=== PATIENT | male | born 1950 | race Two or more races ===

== ENCOUNTER 2018-03-24 16:09 | Inpatient (IN) | payer SELFPAY ==
[~2018-03-24] VITALS: Ht 165.1 cm; Wt 63.4 kg
[2018-03-24] MEDS ORDERED: AUGMENTIN875 MG PO (20:03)
[2018-03-25 00:30] VITALS: BP 149/80
[2018-03-25 03:37] VITALS: BP 120/59
[2018-03-25 07:38] VITALS: BP 106/58
[2018-03-25 08:10] LABS: APPEARANCE CLEAR ((CLEAR)); BILIRUBIN NEGATIVE; BLOOD SMALL; COLOR YELLOW ((YELLOW)); GLUCOSE (STRIP) NEGATIVE; KETONES NEGATIVE; LEUKOCYTES NEGATIVE; NITRITE NEGATIVE; PROTEIN (STRIP) NEGATIVE; SPECIFIC GRAVITY 1.023 (1.000-1.030); UROBILINOGEN 0.2 MG/DL (0.2-1.0)
[2018-03-25 08:49] LABS: BACTERIA NONE SEEN /HPF; EPITHELIAL CELLS NONE SEEN /HPF; MUCUS TRACE /LPF; RED BLOOD CELLS 0-5 /HPF (0-5); WHITE BLOOD CELLS 0-5 /HPF (0-5)
[2018-03-25 11:34] VITALS: BP 113/71
[2018-03-25 16:31] VITALS: BP 112/61
[2018-03-25 19:51] VITALS: BP 106/69
[2018-03-26] VITALS (7 sets, daily range): BP systolic 98–133; BP diastolic 53–76
[2018-03-26 06:37] LABS: INTER. NORMALIZED RATIO 1.3
[2018-03-26 06:39] LABS: PTT 28.3 SEC (25-37)
[2018-03-27 03:27] VITALS: BP 100/55
[2018-03-27 07:43] VITALS: BP 116/59
[2018-03-27 11:21] VITALS: BP 108/67
[2018-03-27 15:50] VITALS: BP 100/61
[2018-03-27 19:51] VITALS: BP 100/55
[2018-03-27 23:06] VITALS: BP 98/51
[2018-03-28 03:21] VITALS: BP 103/58
[2018-03-28 08:00] VITALS: BP 106/66
[2018-03-28 16:31] VITALS: BP 113/67
[2018-03-28 19:30] VITALS: BP 104/63
[2018-03-28 23:24] VITALS: BP 97/55
[2018-03-29 04:09] VITALS: BP 94/50
[2018-03-29 08:12] VITALS: BP 97/57
[2018-03-29 13:10] VITALS: BP 124/69
[2018-03-29 16:14] VITALS: BP 120/59
[2018-03-29 20:10] VITALS: BP 95/50
[2018-03-30] VITALS (7 sets, daily range): BP systolic 91–105; BP diastolic 50–60
[2018-03-30 06:43] LABS: HEMATOCRIT 36.7 % (38.0-50.0); HEMOGLOBIN 12.2 G/DL (12.5-16.6); MCH 29.3 PG (29.0-34.0); MCHC 33.2 G/DL (30.0-36.0); PLATELET COUNT 231 K/uL (156-360); RBC DIS.WIDTH-CV 11.9 % (11.8-14.6); RBC DIS.WIDTH-SD 38.5 % (39-53); RED BLOOD COUNT 4.17 M/uL (4.00-5.50); WHITE BLOOD COUNT 4.6 K/uL (4.1-10.2)
[2018-03-31 04:47] VITALS: BP 102/52
[2018-03-31 07:39] VITALS: BP 117/60
[2018-03-31 11:17] VITALS: BP 99/55
[2018-03-31 16:02] VITALS: BP 101/58
[2018-03-31 19:10] VITALS: BP 104/59
[2018-03-31 23:26] VITALS: BP 99/57
[2018-04-01 01:42] LABS: QGTB-NIL 0.58 IU/mL (()); QUANTIFERON TB GOLD POSITIVE (Negative); TB AG-NIL 9.43 IU/mL (())
[2018-04-01 04:38] VITALS: BP 89/64
[2018-04-01 04:40] VITALS: BP 152/81
[2018-04-01 07:43] VITALS: BP 102/55
[2018-04-01 11:23] VITALS: BP 108/52
[2018-04-01 15:55] VITALS: BP 97/54
[2018-04-01 23:13] VITALS: BP 98/64
[2018-04-02 08:05] VITALS: BP 98/54
[2018-04-02 12:17] VITALS: BP 109/67
[2018-04-02 16:17] VITALS: BP 102/58
[2018-04-02] MEDS ORDERED: TRAMADOL HCL50 MG PO (19:00)
[2018-04-02] MEDS ORDERED: AUGMENTIN875 MG PO (19:01)
[2018-04-02 19:36] VITALS: BP 120/71
== END 2018-04-02 20:36 | disposition home or self-care (01) | DRG 300 ==
LOC: EME 16:09 → EDOF 22:11 → 3EAST 22:11 → ENRESERV 22:18 → EDOF 03-25 00:18 → 3EAST 03-25 00:29
PROVIDERS: Internal Medicine; Radiology Diagnostic Radiology; Surgery
PROC: 0J943ZX Drainage of Right Neck Subcutaneous Tissue and Fascia, Percutaneous Approach, Diagnostic (ICD-10-PCS; 2018-03-24)
PROC: 0J940ZX Drainage of Right Neck Subcutaneous Tissue and Fascia, Open Approach, Diagnostic (ICD-10-PCS; principal; 2018-03-26)
DX: I96 Gangrene, not elsewhere classified (principal); L02.11 Cutaneous abscess of neck; K80.20 Calculus of gallbladder without cholecystitis without obstruction; I87.1 Compression of vein; E55.9 Vitamin D deficiency, unspecified; W57.XXXA Bitten or stung by nonvenomous insect and other nonvenomous arthropods, initial encounter
CPT/HCPCS: 36415; 70553; 71260; 75989; 76942; 80053; 81003; 82948; 84439; 84443; 85025; 85027; 85610; 85730; 86376; 86480 90; 86611 90; 87040; 87070; 87075; 87102; 87116; 87205; 87206; 88304; 88305; 88312; 93005; 99281; 99284; J0295; J0456; J0690; J1170; J2250; J2405; J2540; J7030; J7040; J7050; S0020